=== PATIENT | male | born 1995 | race Two or more races ===

== ENCOUNTER 2021-10-31 22:32 | Emergency (ER) | payer SELFPAY ==
[~2021-10-31] VITALS: Ht 175.3 cm; Wt 120.2 kg
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
[2021-10-31] MEDS ORDERED: ACETAMINOPHEN ES 500 MG TABLET ONE (22:49)
--- NOTE | 2021-10-31 22:56 | NUR ---
PT TAKEN TO CT SCAN
[2021-10-31] MEDS ORDERED: ACETAMINOPHEN ES 500 MG TABLET PO ONE (23:00)
[2021-10-31] MEDS ORDERED: HYDROCODONE/APAP 5/325MG TABLET PO ONE (23:30)
[2021-10-31] MEDS ORDERED: HYDROCODONE/APAP 5/325MG TABLET ONE (23:41)
--- NOTE | 2021-11-01 00:35 | NUR ---
Patient discharged to home in stable condition. Written and verbal after care instructions given. Patient verbalizes understanding of instruction. pt ambulatory with a steady gait
[2021-11-01 00:38] VITALS: BP 112/75
== END 2021-11-01 00:38 | disposition home or self-care (01) ==
LOC: ER 22:34
DX: S00.03XA Contusion of scalp, initial encounter (principal); W22.8XXA Striking against or struck by other objects, initial encounter; Y93.89 Activity, other specified; Y92.521 Bus station as the place of occurrence of the external cause; Y99.8 Other external cause status
CPT/HCPCS: 70450-TC; 70486-TC; 72125-TC